=== PATIENT | female | born 1970 | race African-American/Black ===

== ENCOUNTER → 2017-02-18 | Outpatient (CLI) | payer OTHER ==
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
== END | disposition home or self-care (01) ==
LOC: KCIC 12:05
PROVIDERS: ATTEND Family Medicine
DX: M25.521 Pain in right elbow (principal); V89.2XXD Person injured in unspecified motor-vehicle accident, traffic, subsequent encounter
CPT/HCPCS: 73080

== ENCOUNTER → 2017-06-09 | Outpatient (CLI) | payer BC ==
--- NOTE | 2017-06-09 13:47 | KCIC ---
History: Routine screening. Technique: Bilateral digital mammographic routine views were obtained with CAD - computer aided detection. Comparison: May 27, 2015. Findings: Breast Tissue Density C : The breast tissue is heterogeneously dense. Scattered fibroglandular elements may obscure underlying pathology. There is asymmetric tissue density in the mid left breast on the CC view only. There are no suspicious microcalcifications or areas of architectural distortion. Impression: Asymmetric tissue density on the left. Recommend the patient return for rolled cc views and true lateral view. Additional views or ultrasound may be necessary as well. The patient and the clinical service will be contacted by the radiology staff for further instructions. BI-RADS Category 0: Incomplete: Need additional imaging evaluation. Your mammogram demonstrates that you have dense breast tissue, which could hide abnormalities, and if you have other risk factors for breast cancer that have been identified, you might benefit from supplemental screening tests that may be suggested by your ordering physician. Dense breast tissue, in and of itself, is a relatively common condition. This information is not provided to cause undue concern, but rather to raise your awareness and to promote discussion with your physician regarding the presence of other risk factors, in addition to dense breast tissue. A report of your mammography results will be sent to you and your physician. You should contact your physician if you have any questions or concerns regarding this report. A mammogram does not have 100% sensitivity and therefore a negative imaging study should not delay further work up of a suspicious abnormality. The patient will receive a letter with the results in the mail. Patient information is entered into the reminder system with a target due date for the next screening mammogram. The patient will receive a reminder. "Our facility is accredited by the [employer] Mammography [employer]." Electronically signed by: Solo Burroughs III, MD (06/09/2017 1:44 PM) [id number]
== END | disposition home or self-care (01) ==
LOC: KCIC MAMMO 07:53
PROVIDERS: ATTEND Family Medicine
DX: Z12.31 Encounter for screening mammogram for malignant neoplasm of breast (principal)
CPT/HCPCS: G0202; 77067

== ENCOUNTER → 2017-07-14 | Outpatient (CLI) | payer BC ==
--- NOTE | 2017-07-14 09:05 | KCIC ---
DATE: 07/14/2017. EXAM: DIGITAL DIAGNOSTIC LT. HISTORY: Density on mammographic screening. Additional views are requested. COMPARISON: 06/09/2017, 06/03/2016, 05/27/2015. This study was interpreted with the benefit of Computerized Aided Detection (CAD). FINDINGS: The breast parenchyma is heterogeneously dense, which could reduce sensitivity of mammography. Breast parenchyma level C.. The density of concern slightly lateral to the nipple line on the CC view resolves to its former appearance on rolled views. There is no suspicious correlate on the MLO projection. A coarse calcification is benign. There are no suspicious masses, microcalcifications or architectural distortion. BI-RADS CATEGORY: 2 BENIGN FINDING(S). RECOMMENDED FOLLOW-UP: 12M 12 MONTH FOLLOW-UP. PQRS compliance statement: Patient information was entered into a reminder system with a target due date 06/09/2018 for the next mammogram. Mammography is a sensitive method for finding small breast cancers, but it does not detect them all and is not a substitute for careful clinical examination. A negative mammogram does not negate a clinically suspicious finding and should not result in delay in biopsying a clinically suspicious abnormality. "Our facility is accredited by the [employer] Mammography [employer]."
== END | disposition home or self-care (01) ==
LOC: KCIC MAMMO 08:26
PROVIDERS: ATTEND Family Medicine
DX: R92.8 Other abnormal and inconclusive findings on diagnostic imaging of breast (principal)
CPT/HCPCS: G0206; 77065

== ENCOUNTER → 2018-08-30 | Outpatient (CLI) | payer BC ==
--- NOTE | 2018-08-30 17:36 | KCIC ---
Bilateral digital screening mammograms: Reason for examination: Routine screening. Comparison is made to previous studies dated back to 05/27/2015. Interpretation was made with the benefit of CAD. The skin and nipples show no abnormalities. No abnormal axillary lymph nodes are seen. The breast parenchyma is heterogeneously dense. (Breast density: Category C.) There are no dominant masses, suspicious calcifications or architectural distortion. Impression: No evidence of malignancy. Recommend routine screening. Your patient's mammogram demonstrates that she has dense breast tissue (breast density category C or D), which could hide abnormalities, and if she has other risk factors for breast cancer that have been identified, she might benefit from supplemental screening tests that may be suggested by you as her ordering physician. Dense breast tissue, in and of itself, is a relatively common condition. Therefore, this information is not provided to cause undue concern, but rather to raise your awareness and to promote discussion with your patient regarding the presence of other risk factors, in addition to dense breast tissue. Your patient's mammography results will be sent to her. BI-RAD Category 2: Benign. "Our facility is accredited by the [employer]amm[employer]." This patient's information has been entered into a reminder system for the patient to be notified with the results of her examination and a target date for the next mammogram. Electronically signed by: Christi Mckinney MD (08/30/2018 5:32 PM) [id number]
== END | disposition home or self-care (01) ==
LOC: KCIC MAMMO 08:04
PROVIDERS: ATTEND Family Medicine
DX: Z12.31 Encounter for screening mammogram for malignant neoplasm of breast (principal)
CPT/HCPCS: 77067

== ENCOUNTER → 2019-09-20 | Outpatient (CLI) | payer BC ==
--- NOTE | 2019-09-20 11:34 | KCIC ---
BILATERAL SCREENING MAMMOGRAM History: Routine screening. Comparison: Bilateral mammogram 08/30/2018 and dating back to 2014. Technique: Routine bilateral digital mammogram views were obtained. Findings: Breast Tissue Density C : The breasts are heterogeneously dense, which may obscure small masses. There are no dominant masses, suspicious microcalcifications, or architectural distortion. IMPRESSION: No mammographic evidence of malignancy. Recommend routine screening. BI-RADS category 1: Negative. The images were reviewed with computer aided detection. Patient information is entered into the reminder system with a target due date for the next screening mammogram. Mammography is the most sensitive method for finding small breast cancers, but it does not detect them all and is not a substitute for careful clinical examination. A negative mammogram does not negate a clinically suspicious finding and should not result in delay in biopsying a clinically suspicious abnormality. "Our facility is accredited by the [employer] Mammography [employer]." Electronically signed by: Eduardo Olivares MD (09/20/2019 11:31 AM) [id number]
== END | disposition home or self-care (01) ==
LOC: KCIC MAMMO 10:13
PROVIDERS: ATTEND Family Medicine
DX: Z12.31 Encounter for screening mammogram for malignant neoplasm of breast (principal); N64.89 Other specified disorders of breast
CPT/HCPCS: 77067

== ENCOUNTER → 2020-09-22 | Outpatient (CLI) | payer BC ==
--- NOTE | 2020-09-22 15:03 | KCIC ---
EXAM: Bilateral screening mammogram. HISTORY: 50-year-old female presents for screening mammography. TECHNIQUE: Full-field digital craniocaudal and mediolateral oblique views of both breasts are obtaine d for evaluation. Computer aided detection was applied. COMPARISON: 09/20/2019 BREAST PARENCHYMAL DENSITY: Level C - Heterogeneously dense. FINDINGS: There is no new suspicious mass, microcalcification or region of architectural distortion. IMPRESSION: BI-RADS Category 2: Benign finding(s). RECOMMENDATION: Annual mammography is recommended. If your mammogram demonstrates that you have dense breast tissue, which could hide abnormalities, and if you have other risk factors for breast cancer that have been identified, you might benefit from s upplemental screening tests that may be suggested by your ordering physician. Dense breast tissue, i n and of itself, is a relatively common condition. This information is not provided to cause undue c oncern, but rather to raise your awareness and to promote discussion with your physician regarding th e presence of other risk factors, in addition to dense breast tissue. A report of your mammography re sults will be sent to you and your physician. You should contact your physician if you have any ques tions or concerns regarding this report. Mammography is a sensitive method for finding small breast cancers, but it does not detect them all a nd is not a substitute for careful clinical examination. A negative mammogram does not negate a clin ically suspicious finding and should not result in delay in biopsying a clinically suspicious abnorma lity. PQRS compliance statement - Patient information was entered into a reminder system with a target due date for the next mammogram. "Our facility is accredited by the [employer] Mamm[employer]." Electronically signed by: Adelita King MD (09/22/2020 3:00 PM) [facility]
== END ==
LOC: KCIC MAMMO 13:52
PROVIDERS: ATTEND Internal Medicine
DX: Z12.31 Encounter for screening mammogram for malignant neoplasm of breast (principal)
CPT/HCPCS: 77067